=== PATIENT | female | born 1970 | race Two or more races ===

== ENCOUNTER 2018-10-19 14:56 | Emergency (ER) | payer SELFPAY ==
[~2018-10-19] VITALS: Ht 144.8 cm; Wt 67.6 kg
--- NOTE | 2018-10-19 15:15 | NUR ---
ED Nurse Note: Pt from home came in due to laceration of her left upper lip S/P fall this morning. Pt slipped and fell hitting her head on the floor. Pt also c/o headache. No bumps or hematoma. Pt is AAO x4, ambulatory and follows commands.
[2018-10-19] MEDS ORDERED: Bacitracin Oint UD TOPIC ONE (15:30)
[2018-10-19] MEDS ORDERED: Lidocaine 1% 10mg/ml/Epi 0.005mg/ml 30ml vial INJ ONE (15:30)
[2018-10-19] MEDS ORDERED: Tetanus/Diptheria/Pertussis Vaccine 0.5ml Syr IM ONE (15:30)
[2018-10-19 15:45] VITALS: BP 108/70
--- NOTE | 2018-10-19 15:50 | NUR ---
ED Nurse Note: Cristiano GOULD at the bed side for suturing of left upper lip.
[2018-10-19] MEDS ORDERED: IBUPROFEN600 MG ORAL (16:19)
[2018-10-19] MEDS ORDERED: AUGMENTIN 500-1 EACH ORAL (16:19)
[2018-10-19 16:35] VITALS: BP 115/88
--- NOTE | 2018-10-19 16:35 | NUR ---
ER Nurse Note: Pt seen, treated, medically cleared for discharge by ERMD. Discharge instructions and prescriptions given with repeat verbalizaion by pt. Instructed pt to follow up with primary care phyiscian within one week. Pt a&ox4, VSS, no signs of distress. ID band removed. Left with all belongings, ambulates with steady gait; left with family member and with own transportation.
--- NOTE | 2018-10-19 19:25 | Emergency Room Report ---
History of Present Illness General Chief Complaint: Multiple Trauma/Fall Source: Patient Present Illness HPI Patient is a 48-year-old female presenting for lip laceration. She states that she was walking late at night yesterday, tripped, and fell forward. She was able to break her fall first with her hands. She then grazed her lip on the floor. Pain is a 5 out of 10 dull ache to this area and does not radiate. Worse with touch. She denies loss of consciousness or any other symptoms. Allergies: Coded Allergies: No Known Allergies (Unverified , 10/19/18) Patient History Past Medical History: see triage record Pertinent Family History: none Last Menstrual Period: None Now: No : 0 Para: 0 Reviewed Nursing Documentation: PMH: Agreed; PSxH: Agreed Nursing Documentation-PMH Past Medical History: No Stated History Review of Systems All Other Systems: negative except mentioned in HPI Physical Exam Vital Signs Date Time Temp Pulse Resp B/P (MAP) Pulse Ox O2 Delivery O2 Flow Rate FiO2 10/19/18 15:05 85 18 Room Air 10/19/18 15:05 98.1 110/61 100 Sp02 EP Interpretation: reviewed, normal General Appearance: no apparent distress, alert, GCS 15, non-toxic Head: normocephalic, atraumatic Eyes: bilateral eye normal inspection, bilateral eye PERRL ENT: hearing grossly normal, normal pharynx, no angioedema, normal voice Neck: full range of motion, supple/symm/no masses Respiratory: chest non-tender, lungs clear, normal breath sounds, speaking full sentences Musculoskeletal: back normal, gait/station normal, normal range of motion, non- tender Neurologic: alert, oriented x3, responsive, motor strength/tone normal, sensory intact, speech normal Psychiatric: judgement/insight normal, memory normal, mood/affect normal, no suicidal/homicidal ideation Skin: laceration - 1.5cm V shaped laceration to L lateral upper lip Lymphatic: no adenopathy Procedures Laceration/Wound Repair Laceration/Wound Repair : Consent: Verbal Wound Location: face Wound's Depth, Shape: superficial, irregular Wound Length (cm): 2 Wound Explored: clean Irrigated w/ Saline (ccs): 100 Betadine Prep?: Yes Anesthesia: 1% Lidocaine, Lidocaine w/ Epi Volume Anesthetic (ccs): 3 Wound Debrided: minimal Wound Repaired With: sutures Suture Size/Type: 6:0, other - plain gut Number of Sutures: 4 Layer Closure?: No Sterile Dressing Applied?: Yes Splint Applied?: No Sling Applied?: No Patient Tolerated: Well Complications: None Medical Decision Making PA Attestation Dr. Gtz is my supervising physician. Patient management was discussed with my supervising physician Diagnostic Impression: Primary Impression: Lip laceration Qualified Codes: S01.511A - Laceration without foreign body of lip, initial encounter ER Course Patient is a 48-year-old female presenting for lip laceration. Ddx considered include but not limited to laceration, wound infection, fracture , concussion, among others PE: Vitals stable. NAD Head is normocephalic atraumatic. PERRL. EOMI No raccoon eyes or kincaid sign There is an approximately 1.5 cm jagged laceration to the left lateral upper lip. No trauma to the bucca mucosa. No tooth fracture The patient is given a tetanus shot Wound is cleaned with normal saline and Betadine A 27g needle was used to administer 3mL of lidocaine w. epi for local anasthesia. 4 sutures were placed with 6-0 plain gut. The wound was well approximated and the patient tolerated the procedure well. The wound was then cleaned and bacitracin was applied. The patient is told to follow-up with her primary doctor within 1 week. ER precautions given Last Vital Signs Date Time Temp Pulse Resp B/P (MAP) Pulse Ox O2 Delivery O2 Flow Rate FiO2 10/19/18 16:35 97.8 84 19 115/88 98 Room Air Status: improved Disposition: HOME, SELF-CARE Condition: Improved Scripts Ibuprofen* (MOTRIN*) 600 Mg Tablet 600 MG ORAL Q8H PRN for For Pain, #30 TAB 0 Refills Prov: TERZIAN,YANIV P.A. 10/19/18 Amoxicillin/Potassium Clav 500-125 Tablet* (AUGMENTIN 500-125 TABLET*) 1 Each Tablet 1 TAB ORAL Q12HR, #14 TAB Prov: TERZIAN,YANIV P.A. 10/19/18 Referrals: NOT CHOSEN [facility]/MD,REFERRING (PCP) Patient Instructions: Laceration Care, Adult Additional Instructions: I discussed my findings with the patient. All questions and concerns have been answered. Treatment and medication compliance have been addressed. You were informed to follow up with primary care doctor within 3 days. Return to ER if pain remains or worsens, you notice discharge from the wound, the wound continues to bleed, the suture/s fall out, you notice a fever or chills, or for any reason. Patient is advised to keep the wound clean and apply an antibacterial ointment. Patient verbalized understanding of discharge instructions. YANIV CONNELLY Oct 19, 2018 19:25
== END 2018-10-19 16:35 | disposition home or self-care (01) ==
LOC: EMR 16:00
DX: S01.511A Laceration without foreign body of lip, initial encounter (principal); Z23 Encounter for immunization; W01.0XXA Fall on same level from slipping, tripping and stumbling without subsequent striking against object, initial encounter; Y93.01 Activity, walking, marching and hiking; Y92.9 Unspecified place or not applicable
CPT/HCPCS: 90471; 90715; 99283